=== PATIENT | female | born 1955 | race Caucasian/White ===

== ENCOUNTER 2018-06-04 13:59 | Outpatient (REF) | payer MEDICAID, SELFPAY | END 2018-06-04 14:19 | LOC: NCHCN 13:59 | PROVIDERS: PCP Obstetrics & Gynecology; Visit Provider Nurse Practitioner Family | DX: R35.0 Frequency of micturition (principal) | CPT/HCPCS: 87086; 87480; 87510; 87660 ==

== ENCOUNTER 2019-03-31 15:11 | Outpatient (REF) | payer MEDICAID, SELFPAY ==
[2019-03-31 20:25] LABS: Alkaline Phosphatase 71 U/L (46-116); C-Reactive Protein 0.08 mg/dL (0.0-0.3); TSH 2.29 uIU/mL (0.36-3.74)
== END 2019-03-31 15:31 ==
LOC: NCHCN 15:11
PROVIDERS: PCP Obstetrics & Gynecology; Visit Provider Internal Medicine
DX: L21.9 Seborrheic dermatitis, unspecified (principal)
CPT/HCPCS: 84075; 84443; 86140

== ENCOUNTER 2020-06-19 18:42 | Outpatient (REF) | payer MEDICAID, SELFPAY | END 2020-06-19 19:02 | LOC: NCHCN 18:42 | PROVIDERS: PCP Obstetrics & Gynecology; Visit Provider Internal Medicine | DX: N30.00 Acute cystitis without hematuria (principal) | CPT/HCPCS: 87077; 87086; 87186 ==

== ENCOUNTER 2020-06-22 12:53 | Outpatient (REF) | payer MEDICAID, SELFPAY ==
[2020-06-23 18:21] LABS: COVID-19 RT-PCR UVMMC Result Negative (Negative)
== END 2020-06-22 13:13 ==
LOC: NCHCN 12:53
PROVIDERS: PCP Obstetrics & Gynecology; Visit Provider Internal Medicine
DX: Z20.822 Contact with and (suspected) exposure to COVID-19 (principal)
CPT/HCPCS: U0003

== ENCOUNTER 2021-04-16 15:52 | Outpatient (REF) | payer MEDICAID, SELFPAY ==
[2021-04-18 15:08] LABS: COVID-19 RT-PCR UVMMC Result Negative (Negative)
== END 2021-04-16 15:53 | disposition home or self-care (01) ==
LOC: NCHCN 15:52
PROVIDERS: PCP Obstetrics & Gynecology; Visit Provider Nurse Practitioner Family
DX: Z20.822 Contact with and (suspected) exposure to COVID-19 (principal); R05.8 Other specified cough
CPT/HCPCS: U0003

== ENCOUNTER 2021-10-30 16:05 | Outpatient (REF) | payer MEDICARE, MEDICAID, SELFPAY | END 2021-10-30 16:06 | disposition home or self-care (01) | LOC: NCHCN 16:05 | PROVIDERS: PCP Obstetrics & Gynecology; Visit Provider Physician Assistant | DX: R35.0 Frequency of micturition (principal) | CPT/HCPCS: 87077; 87086; 87186 ==

== ENCOUNTER 2021-12-24 16:13 | Outpatient (REF) | payer MEDICARE, MEDICAID, SELFPAY ==
[2021-12-24 19:22] LABS: HCT 36.6 % (36.0-46.0); HGB 12.3 g/dL (11.2-15.7); MCH 31.8 pg (27.0-33.0); MCHC 33.6 % (32.0-36.0); MCV 95 fL (80-95); MPV 10.4 fL (8.0-11.0); Platelet Count 381 10^3/uL (130-400); RBC 3.87 10^6/uL (3.93-5.22); RDW 12.7 % (11.7-14.6); WBC 8.48 10^3/uL (4.4-10.8)
[2021-12-24 19:51] LABS: Calculated LDL 161 mg/dL (<100); Cholesterol 252 mg/dL (<200); HDL Cholesterol 57 mg/dL (40-60); TSH 1.97 uIU/mL (0.36-3.74); Triglyceride 174 mg/dL (<150)
== END 2021-12-24 16:14 | disposition home or self-care (01) ==
LOC: NCHCN 16:13
PROVIDERS: Internal Medicine; PCP Obstetrics & Gynecology; Visit Provider Physician Assistant
DX: J45.20 Mild intermittent asthma, uncomplicated (principal); D48.1 Neoplasm of uncertain behavior of connective and other soft tissue; L30.9 Dermatitis, unspecified; R22.9 Localized swelling, mass and lump, unspecified
CPT/HCPCS: 80061; 85027; 84443

== ENCOUNTER 2022-09-30 17:18 | Outpatient (REF) | payer MEDICARE, MEDICAID, SELFPAY ==
[2022-09-30 19:14] LABS: Anion Gap 11.4 mmol/L (3-11); BUN 16 mg/dL (7-18); CO2 23.6 mmol/L (21.0-32.0); CREATININE 0.8 mg/dL (0.55-1.02); Calcium 9.1 mg/dL (8.5-10.1); Calculated LDL 156 mg/dL (<100); Chloride 105 mmol/L (98-107); Cholesterol 235 mg/dL (<200); Estimated GFR 81.21 (mL/min/1.73m2); Glucose 100 mg/dL (74-106); HDL Cholesterol 57 mg/dL (40-60); Potassium 4.4 mmol/L (3.5-5.1); Sodium 140 mmol/L (136-145); Triglyceride 114 mg/dL (<150)
== END 2022-09-30 17:19 | disposition home or self-care (01) ==
LOC: NCHCN 17:18
PROVIDERS: PCP Obstetrics & Gynecology; Visit Provider Internal Medicine
DX: Z79.1 Long term (current) use of non-steroidal anti-inflammatories (NSAID) (principal); J45.20 Mild intermittent asthma, uncomplicated; R79.89 Other specified abnormal findings of blood chemistry
CPT/HCPCS: 80048; 80061

== ENCOUNTER 2022-10-23 15:09 | Outpatient (REF) | payer MEDICARE, MEDICAID, SELFPAY ==
--- OUTSIDE RECORDS SUMMARY | 2022-10-23 15:12 | XMS_ITS | Continuity of Care Document ---
Author Name Unknown Organization [facility] Address [address] [place] [address] Care Team Providers Care Emergency Department Name Role Phone Xu Leal Primary Care Physician Encounter [facility] Date(s): 06/12/22 - 06/12/[address] [address] Discharge Disposition: Home or Self Care Attending Physician: Zulay Snyder Admitting Physician: Zulay Snyder Referring Physician: Zulay Snyder Allergies, Adverse Reactions, Alerts Substance Reaction Severity Status sulfa drugs Unknown Active Social History Social History Type Response Sex Female Patient Care team information Personnel Name: Xu Leal MD Address: Address: [address] [address]
--- OUTSIDE RECORDS SUMMARY | 2022-10-23 15:12 | XMS_ITS | Continuity of Care Document ---
Author Name Unknown Organization [facility] Address [address] [place] [address] Care Team Providers Care Shirring Machine Operator Name Role Phone Xu Leal Primary Care Physician [facility] Date(s): 04/04/22 - 04/04/[address] [address] Encounter Diagnosis Encounter for screening mammogram for malignant neoplasm of breast(Final) - Discharge Disposition: Home or Self Care Attending Physician: Xu Leal MD Admitting Physician: Xu Leal MD Referring Physician: Xu Leal MD Allergies, Adverse Reactions, Alerts Substance Reaction Severity Status sulfa drugs Unknown Active Social History Social History Type Response Sex Female Patient Care team information Care Team Personnel Name: Xu Leal MD Position: No Access Member Role: Primary Care Physician Address: Address: [address] [address]- Care Team Related Persons Name: MAXWELL L[address] Address: Home [address] [place], [place] [id number]
[2022-10-23 20:33] LABS: Bacteria Rare HPF (Negative); C & S Indicated? C&S Done As Ordered; Casts Negative LPF (Negative); Crystals Negative HPF (Negative); Epithelial Cells Rare HPF (Negative); Mucus Negative (Negative); RBC 0-2 HPF (0-2); WBC 0-2 HPF (0-5)
== END 2022-10-23 15:10 | disposition home or self-care (01) ==
LOC: NCHCN 15:09
PROVIDERS: PCP Obstetrics & Gynecology; Visit Provider Internal Medicine
DX: R31.9 Hematuria, unspecified (principal); R35.0 Frequency of micturition
CPT/HCPCS: 81015; 87086

== ENCOUNTER 2024-01-14 12:43 | Outpatient (REF) | payer MEDICARE, MEDICAID, SELFPAY ==
[2024-01-14 20:39] LABS: Anion Gap 7.4 mmol/L (3-11); BUN 15 mg/dL (7-18); CO2 25.6 mmol/L (21.0-32.0); CREATININE 0.8 mg/dL (0.55-1.02); Calcium 9.3 mg/dL (8.5-10.1); Chloride 104 mmol/L (98-107); Estimated GFR 80.71 (mL/min/1.73m2); Glucose 96 mg/dL (74-106); Potassium 4.1 mmol/L (3.5-5.1); Sodium 137 mmol/L (136-145)
== END 2024-01-14 12:44 | disposition home or self-care (01) ==
LOC: NCHCN 12:43
PROVIDERS: PCP Obstetrics & Gynecology; Visit Provider Internal Medicine
DX: Z76.0 Encounter for issue of repeat prescription (principal)
CPT/HCPCS: 80048

== ENCOUNTER 2024-08-31 00:51 | Outpatient (CLI) | payer MEDICARE, MEDICAID, SELFPAY ==
--- NOTE | 2024-08-31 | DI.MRI_ITS ---
Exam(s) MR LOWER JOINT RT WO EXAM: MR LOWER JOINT RT WO CLINICAL HISTORY: UNILATERAL PRIMARY OSTEOARTHRITIS R KNEE, M17.11. TECHNIQUE: Multiplanar multisequence MRI was performed. COMPARISON: No exams were available for comparison FINDINGS: The examination is limited due to patient motion artifact. BONES: There is no fracture or contusion pattern. JOINTS: There is osteoarthritis in the medial femoral tibial joint characterized by near complete los s of the articular cartilage, subchondral edema and osteophytes. There are subchondral cysts seen in both the medial femoral condyle and the medial tibial plateau. The lateral femoral tibial joint is well maintained. The patellofemoral joint is also well maintained. There is a small amount of fluid in the joint space. This is within normal limits. TENDONS: Extensor mechanism: Unremarkable. Medial retinaculum: Unremarkable. Lateral retinaculum: Unremarkable. Popliteus: Unremarkable. MUSCLES: Unremarkable. MENISCI: The body and posterior horn of the medial meniscus shows marked decrease in size and irregul ar configuration. The lateral meniscus is unremarkable. SOFT TISSUES: There is some fluid seen medial to the proximal tibia suggesting pes anserinus bursitis . LIGAMENTS: Anterior Cruciate: Unremarkable. Posterior Cruciate: Unremarkable. Medial Collateral:Unremarkable. Lateral Collateral: Unremarkable. OTHER: IMPRESSION: 1. Marked osteoarthritis of the medial femoral tibial joint. 2. Maceration of the body and posterior horn of the medial meniscus. 3. Findings suggestive of a bursitis of the pes anserinus. 4. No evidence of a ligament tear. DATA REPOSITORY:
== END 2024-08-31 01:11 ==
LOC: DI 00:52
PROVIDERS: PCP Obstetrics & Gynecology; Visit Provider Internal Medicine
DX: M17.11 Unilateral primary osteoarthritis, right knee (principal)
CPT/HCPCS: 73721

== ENCOUNTER 2024-09-09 13:36 | Outpatient (CLI) | payer MEDICARE, MEDICAID, SELFPAY ==
--- NOTE | 2024-09-09 13:12 | DI.RAD_ITS ---
Exam(s) XR KNEE RT 4V AP,LAT,DEEPAK,PAT EXAM: XR KNEE RT 4V AP,LAT,DEEPAK,PAT CLINICAL HISTORY: right knee pain. TECHNIQUE: 2D digital imaging was performed. Three views. COMPARISON: MR MR LOWER JOINT RT WO from 08/31/2024 FINDINGS: BONES: No acute fracture is present. No bony destructive lesion is seen. JOINTS: There is severe degenerative changes of the medial femoral tibial joint, with a [id number] appearance. Periarticular spurring, sclerosis as well as subchondral cyst formation on both sides of the joint. There is varus angulation at the knee. The lateral femoral tibial joint shows some comp ensatory widening. The patellofemoral joint space is maintained. No joint effusion is seen. SOFT TISSUE: Normal. IMPRESSION: End-stage degenerative changes of the medial femoral tibial joint. DATA REPOSITORY: RADIATION DOSE DELIVERED:
--- NOTE | 2024-09-09 13:12 | DI.RAD_ITS ---
Exam(s) XR KNEE LT 4V AP,LAT,DEEPAK,PAT EXAM: XR KNEE LT 4V AP,LAT,DEEPAK,PAT CLINICAL HISTORY: left knee pain. TECHNIQUE: 2D digital imaging was performed. Three views. COMPARISON: CR XR KNEE RT 4V AP,LAT,DEEPAK,PAT from 09/09/2024 FINDINGS: BONES: No acute fracture is present. No bony destructive lesion is seen. JOINTS: There is severe narrowing of the medial femoral tibial joint, with a ihsa-jv-esoj appearance. There is prominent periarticular spurring as well as large subchondral cysts on both sides of the j oint. There is also varus angulation at the knee. There is a bipartite patella at the lateral aspec t. Patellofemoral joint is maintained with the exception of the far lateral portion at the bipartite component. No joint effusion is seen. SOFT TISSUE: Normal. IMPRESSION: End-stage degenerative changes medial femoral tibial joint. DATA REPOSITORY: RADIATION DOSE DELIVERED:
== END 2024-09-09 13:37 | disposition home or self-care (01) ==
LOC: DIORS 13:40
PROVIDERS: PCP Internal Medicine; Referring Provider Internal Medicine; Visit Provider Physician Assistant
DX: M17.11 Unilateral primary osteoarthritis, right knee; M17.12 Unilateral primary osteoarthritis, left knee
CPT/HCPCS: 99204; 73564

== ENCOUNTER 2024-12-01 18:52 | Outpatient (REF) | payer MEDICARE, SELFPAY ==
[2024-12-01 20:24] LABS: Abs Immature Grans 0.02 10^3/uL (0.0-0.06); HCT 36.6 % (36.0-46.0); HGB 12.1 g/dL (11.2-15.7); Immature Grans % 0.2 %; MCH 31.5 pg (27.0-33.0); MCHC 33.1 % (32.0-36.0); MCV 95 fL (80-95); MPV 9.6 fL (8.0-11.0); Platelet Count 429 10^3/uL (130-400); RBC 3.84 10^6/uL (3.93-5.22); RDW 12.5 % (11.7-14.6); RDW-SD 43.5 fL; WBC 8.86 10^3/uL (4.4-10.8)
[2024-12-01 20:46] LABS: Anion Gap 9.6 mmol/L (3-11); BUN 18 mg/dL (7-18); CO2 25.4 mmol/L (21.0-32.0); Calcium 9.5 mg/dL (8.5-10.1); Calculated LDL 149 mg/dL (<100); Chloride 102 mmol/L (98-107); Cholesterol 229 mg/dL (<200); Estimated GFR 94.15 (mL/min/1.73m2); Glucose 96 mg/dL (74-106); HDL Cholesterol 62 mg/dL (>or=50); Potassium 4.1 mmol/L (3.5-5.1); Sodium 137 mmol/L (136-145); Triglyceride 93 mg/dL (<150)
[2024-12-02 19:10] LABS: HIV-1/2 Ag & Ab Screen Negative (Negative)
[2024-12-02 19:23] LABS: Hepatitis C Ab w Rflx HCV PCR Negative (Negative)
== END 2024-12-01 18:53 | disposition home or self-care (01) ==
LOC: NCHCN 18:52
PROVIDERS: PCP Internal Medicine; Visit Provider Internal Medicine
DX: Z79.1 Long term (current) use of non-steroidal anti-inflammatories (NSAID) (principal); Z11.4 Encounter for screening for human immunodeficiency virus [HIV]; Z13.220 Encounter for screening for lipoid disorders
CPT/HCPCS: 80048; 80061; 86803; 87389; 85025

== ENCOUNTER 2024-12-10 00:50 | Outpatient (CLI) | payer MEDICARE, SELFPAY ==
[2024-12-10 11:21] LABS: HCT 36.8 % (36.0-46.0); HGB 12.1 g/dL (11.2-15.7); MCH 31.2 pg (27.0-33.0); MCHC 32.9 % (32.0-36.0); MCV 95 fL (80-95); MPV 9.1 fL (8.0-11.0); Platelet Count 402 10^3/uL (130-400); RBC 3.88 10^6/uL (3.93-5.22); RDW 12.5 % (11.7-14.6); RDW-SD 43.6 fL; WBC 8.03 10^3/uL (4.4-10.8)
[2024-12-10 11:23] LABS: Anion Gap 11.9 mmol/L (3-11); BUN 17 mg/dL (7-18); CO2 25.1 mmol/L (21.0-32.0); Calcium 9.3 mg/dL (8.5-10.1); Chloride 98 mmol/L (98-107); Estimated GFR 97.71 (mL/min/1.73m2); Glucose 116 mg/dL (74-106); Potassium 4.4 mmol/L (3.5-5.1); Sodium 135 mmol/L (136-145)
== END 2024-12-10 00:51 | disposition home or self-care (01) ==
LOC: LBO 00:50
PROVIDERS: PCP Internal Medicine; Visit Provider Student in an Organized Health Care Education/Training Program
DX: Z01.818 Encounter for other preprocedural examination (principal); M17.11 Unilateral primary osteoarthritis, right knee
CPT/HCPCS: 36415; 80048; 85027

== ENCOUNTER 2024-12-10 10:16 | Outpatient (CLI) | payer MEDICARE, MEDICAID, SELFPAY ==
--- NOTE | 2024-12-10 09:45 | DI.RAD_ITS ---
Exam(s) XR STANDING ALIGNMENT EXAM: XR STANDING ALIGNMENT CLINICAL HISTORY: PRE OP TKA. TECHNIQUE: 2D digital imaging was performed. COMPARISON: CR XR KNEE LT 4V AP,LAT,DEEPAK,PAT from 09/09/2024 FINDINGS: 3 views There is xzdj-kc-[id number] narrowing of the medial compartments of both knees with relative preservation of height of the lateral compartments bilaterally. Mild symmetrical narrowing of the hip joint spaces. No osteophytes in the hips. Ankles unremarkable. Bone density normal. No osseous lesions. Some disc space narrowing in the lumbar spine is noted. There is an IUD in place IMPRESSION: Advanced relatively symmetrical yczr-wd-kvzx narrowing of the medial compartments of both knees. There is an IUD in place in this 69-year-old patient DATA REPOSITORY: RADIATION DOSE DELIVERED:
== END 2024-12-10 10:17 | disposition home or self-care (01) ==
LOC: DIORS 10:16
PROVIDERS: PCP Internal Medicine; Visit Provider Physician Assistant
DX: Z01.818 Encounter for other preprocedural examination (principal); M17.0 Bilateral primary osteoarthritis of knee
CPT/HCPCS: 99024; 77073

== ENCOUNTER 2024-12-21 09:51 | Day surgery (SDC) | payer MEDICARE, MEDICAID, SELFPAY ==
[2024-12-21] VITALS (14 sets, daily range): BP systolic 109–163; BP diastolic 56–109; PULSE 55–76; RESP 10–21; TEMP 36.3–36.5; O2SAT 97–100; BMI 25.3
--- NOTE | 2024-12-21 07:25 | W.PM.DSUDISC ---
Date of service: 12/21/24 Discharge Plan Disposition Patient Disposition: Home Condition: Good Discharge Details Reason For Visit: R TKR Attending Provider: Benji Sánchez Primary Care Provider: Xu Barajas Home Meds and New Rx's Prescriptions: New acetaminophen 500 mg tablet 1,000 mg PO TID Qty: 90 3RF aspirin 81 mg tablet,delayed release (DR/EC) 81 mg PO BID Qty: 60 0RF dexamethasone 4 mg tablet 4 mg PO DAILY Qty: 2 0RF docusate sodium 100 mg capsule 100 mg PO BID PRNQty: 28 0RF meloxicam 15 mg tablet 15 mg PO DAILY Qty: 30 2RF pantoprazole 40 mg tablet,delayed release (DR/EC) 40 mg PO DAILY Qty: 14 0RF gabapentin 300 mg capsule 300 mg PO QHS Qty: 14 0RF oxycodone 5 mg tablet 5 mg PO Q4H PRNQty: 18 0RF Continued albuterol sulfate [Ventolin HFA] 90 mcg/actuation HFA aerosol inhaler 2 puff inhalation Q6H PRN budesonide-formoterol [Symbicort] 80-4.5 mcg/actuation HFA aerosol inhaler 2 puff inhalation BID famotidine 40 mg tablet 40 mg PO DAILY fluticasone propionate 50 mcg/actuation spray,suspension 1 spray intranasal DAILY Rx Instructions: administer into each nostril loratadine 10 mg tablet 10 mg PO DAILY triamcinolone acetonide 0.1 % cream 1 applic topical DAILY albuterol sulfate 90 mcg/actuation HFA aerosol inhaler 2 puff inhalation Q6H PRN Discontinued meloxicam 7.5 mg tablet 7.5 mg PO DAILY Discharge Instructions Additional Instructions: Total Knee Discharge Instructions Activity: The most important activity is to walk and to work on gentle motion (both flexion and extension). You should try to take short walks a few times a day. It is important that when resting you work on keeping the knee straight. Avoid putting a pillow behind the knee as this will encourage flexion. Work on range of motion exercises as provided by Physical Therapy. - Start outpatient physical therapy within 2 weeks. - You should wear the YOLI hose on both legs for 2 weeks. You may remove these at night. You may also use any compression sock in place of the YOLI hose. - Utilize [employer] to review exercises, see videos on exercises and obtain basic information pertaining to your surgery and your recovery. Dressing: Remove the Jarred wrap by 2 days after your surgery and put on the YOLI stocking given to you from the hospital. Keep the surgical dressing (underneath the JARRED wrap) in place for at least one week. After the first week it may be removed and replaced with light gauze and tape or nothing. The wound and dressing may get wet after 3 days but avoid soaking the dressing or otherwise it will need to be changed. Many people prefer covering the dressing with cling wrap (saran wrap) to minimize it from getting soaked. If it gets wet, just pat dry. If it starts to peel off then it will need to be changed. Medications: - You should take Tylenol and anti-inflammatory meloxicam as your primary pain control medications. - You have been prescribed a stronger pain medication Oxycodone for breakthrough pain, take as needed as prescribed. - You have also been prescribed a stomach acid reduction agent Pantoprozole to help reduce stomach acid and reflux. - You have been prescribed Gabapentin to take at night for restlessness and nerve pain. - You will be taking Aspirin 81mg twice a day for DVT prevention unless instructed otherwise. - You have also been prescribed Decadron to take to control post-operative nausea and pain. You will start this tomorrow. - If you have constipation you should take Colace or Miralax (both ivhe-sbw-fzjrqes). It takes most people 3-4 days to have a bowel movement. Follow-up: 2 weeks If you have any acute concerns or questions, please do not hesitate to contact the office at [phone]. You may contact Dr. Sánchez with any questions after hours through the hospital at [phone] or on his cell phone at [phone]. Referrals: Benji Sánchez MD [ [facility] STAFF PHYSICIAN, Orthopaedic Surgical] Equipment/Supplies: Walker Activity:: Activity as Tolerated Shower/Bathe:: 72 hours Diet:: As Tolerated Discharge Orders Discharge Orders: Discharge Order (Routine); Ordered 12/21/24 Ordered By: Davonte Leiva DS: Diagnosis Discharge Diagnosis (1) Bilateral primary osteoarthritis of knee: Status: Acute
[2024-12-21] MEDS: Lactated Ringers 1,000 ML 80 ML IV (10:47)
[2024-12-21] MEDS: Celecoxib 200 MG CAP 400 MG PO (10:49)
[2024-12-21] MEDS: Acetaminophen 500 MG TAB 1000 MG PO (10:50)
[2024-12-21] MEDS: Gabapentin 300 MG CAP PO (10:50)
--- NOTE | 2024-12-21 11:07 | W.ANESPRE ---
General Info Date of Service Date Performed: 12/21/24 Height: 5 ft 2.5 in Weight: 63.9 kg Body Mass Index (BMI): 25.3 Surgical Procedure: Operation Date: 12/21/24 13:25 Proposed Procedure Side Surgeon p Knee Total Arthroplasty Possible Revision- TIBIA, w/Orth[facility] Right Benji Sánchez MD Meds Allergies and Home Medications Allergies Allergy/AdvReac Type Severity Reaction Status Date / Time sulfadiazine Allergy Intermediate Hives Verified 12/21/24 10:17 sulfamethoxazole (From Allergy Unknown Unknown Verified 12/21/24 10:17 Bactrim) trimethoprim (From Bactrim) Allergy Unknown Unknown Verified 12/21/24 10:17 Home Medication ?Medication ?Instructions ?Recorded albuterol sulfate 90 mcg/actuation 2 puff inhalation Q6H PRN 08/19/24 aerosol inhaler famotidine 40 mg tablet 40 mg PO DAILY 08/19/24 fluticasone propionate 50 1 spray intranasal DAILY 08/19/24 mcg/actuation nasal spray,suspension loratadine 10 mg tablet 10 mg PO DAILY 08/19/24 triamcinolone acetonide 0.1 % 1 applic topical DAILY 08/19/24 topical cream albuterol sulfate 90 mcg/actuation 2 puff inhalation Q6H PRN 12/10/24 aerosol inhaler (Ventolin HFA) budesonide-formoterol HFA 80 2 puff inhalation BID 12/10/24 mcg-4.5 mcg/actuation aerosol inhaler (Symbicort) acetaminophen 500 mg tablet 1,000 mg (2 x 500 mg) PO TID #90 12/21/24 tabs aspirin 81 mg tablet,delayed 81 mg PO BID #60 tabs 12/21/24 release dexamethasone 4 mg tablet 4 mg PO DAILY #2 tabs 12/21/24 docusate sodium 100 mg capsule 100 mg PO BID PRN #28 caps 12/21/24 gabapentin 300 mg capsule 300 mg PO QHS #14 caps 12/21/24 meloxicam 15 mg tablet 15 mg PO DAILY #30 tabs 12/21/24 oxycodone 5 mg tablet 5 mg PO Q4H PRN #18 tabs 12/21/24 pantoprazole 40 mg tablet,delayed 40 mg PO DAILY #14 tabs 12/21/24 release Current Visit Medications: Current Medications Generic Name Dose Route Start Last Admin Trade Name Cuca PRN Reason Stop Dose Admin Acetaminophen 1,000 mg 12/21/24 06:00 12/21/24 10:50 Acetaminophen 500 Mg Tab PO 12/21/24 23:59 1,000 mg PREOP NILAY Administration Acetaminophen 1,000 mg 12/21/24 07:23 Acetaminophen 500 Mg Tab PO 01/20/25 07:22 TID PRN PRN Analgesia Celecoxib 400 mg 12/21/24 06:00 12/21/24 10:49 Celecoxib 200 Mg Cap PO 12/21/24 23:59 400 mg PREOP NILAY Administration Docusate Sodium 100 mg 12/21/24 07:23 Docusate Sodium 100 Mg Cap PO 01/20/25 07:22 BID PRN PRN Constipation Gabapentin 300 mg 12/21/24 06:00 12/21/24 10:50 Gabapentin 300 Mg Cap PO 12/21/24 23:59 300 mg PREOP NILYA Administration Ringer's Solution 1,000 mls @ 80 mls/hr 12/21/24 06:00 12/21/24 10:47 IV 12/21/24 23:59 80 mls/hr INFUSION NILAY Administration Cefazolin Sodium/Dextrose 2 gm in 50 mls @ 100 mls/hr 12/21/24 06:00 Ancef Duplex IVPB 12/21/24 23:59 PREOP NILAY Tranexamic Acid/Sodium Chloride 1,000 mg in 100 mls @ 600 mls/hr 12/21/24 06:00 IVPB 12/21/24 23:59 PREOP NILAY IV Miscellaneous Supplies 1 each 12/21/24 06:00 Iv Access IV 12/21/24 23:59 DIRECTED NILAY Ondansetron HCl 4 mg 12/21/24 07:23 Ondansetron 4 Mg/2 Ml Vial IVP 01/20/25 07:22 Q6H PRN PRN Nausea Oxycodone HCl 0 mg 12/21/24 07:23 Oxycodone 5 Mg Tab PO 01/20/25 07:22 Q3H PRN PRN Pain Polyethylene Glycol 17 gm 12/21/24 07:23 Polyethylene Glycol 3350 17 Gm Packet PO 01/20/25 07:22 BID PRN PRN Constipation Sodium Chloride 0 ml 12/21/24 06:00 Normal Saline Flush 10 Ml Syr IV 12/21/24 23:59 PRN PRN Sodium Chloride 0 ml 12/21/24 06:00 Normal Saline 10 Ml Vial IJ 12/21/24 23:59 DIRECTED PRN Sterile Water 0 ml 12/21/24 06:00 Water,Injection,Sterile 10 Ml Vial IJ 12/21/24 23:59 DIRECTED PRN PFSH Active Problems Active Problems: Problem Status Onset Code History of total right knee replacement Acute 12/21/24 Z96.651 Eczema Acute L30.9 Bilateral hearing loss Acute H91.93 Rosacea Acute L71.9 Mild intermittent asthma Acute J45.20 GERD (gastroesophageal reflux disease) Chronic K21.9 Bilateral primary osteoarthritis of knee Acute M17.0 Medical History Medical History Urticaria Surgical History Surgical History H/O removal of cyst left leg Hx of appendectomy S/P tonsillectomy Tobacco Smoking/Tobacco Use Status: Never Substance Use Substance use: Never Substance use type: does not use Vital Signs and Lab Results Vital Signs Most Recent Vital Signs in EMR: Most Recent Vital Signs Temp Pulse Resp BP Pulse Ox 36.4 C L 76 18 145/85 H 100 12/21/24 10:11 12/21/24 10:11 12/21/24 10:11 12/21/24 10:11 12/21/24 10:11 Lab Results Complete Blood Count: WBC, (4.4-10.8) 8.03 10^3/uL 12/10/24, 11:07 RBC, (3.93-5.22) 3.88 10^6/uL L 12/10/24, 11:07 Hgb, (11.2-15.7) 12.1 g/dL 12/10/24, 11:07 Hct, (36.0-46.0) 36.8 % 12/10/24, 11:07 Plt Count, (130-400) 402 10^3/uL H 12/10/24, 11:07 Complete Metabolic Panel: Sodium, (136-145) 135 mmol/L L 12/10/24, 11:07 Potassium, (3.5-5.1) 4.4 mmol/L 12/10/24, 11:07 Chloride, (98-107) 98 mmol/L 12/10/24, 11:07 Carbon Dioxide, (21.0-32.0) 25.1 mmol/L 12/10/24, 11:07 BUN, (7-18) 17 mg/dL 12/10/24, 11:07 Creatinine, (0.55-1.02) 0.6 mg/dL 12/10/24, 11:07 Est GFR (CKD-EPI 2020), (mL/min/1.73m2) 97.71 12/10/24, 11:07 Calcium, (8.5-10.1) 9.3 mg/dL 12/10/24, 11:07 Glucose, (74-106) 116 mg/dL H 12/10/24, 11:07 Infectious Disease: HIV 1&2 Ag/Ab, 4th Gen, (Negative) Negative 12/01/24, 15:30 Hepatitis C Antibody, (Negative) Negative 12/01/24, 15:30 Anesthesia Assessment and Plan Anesthesia History Personal History: No History of Anesthesia Complications Family History: No Family History of Anesthesia Complications Exercise Tolerance Exercise Tolerance: Metabolic Equivalents>4 Pertinent Negatives Pertinent Negatives: No Symptoms of GERD, No Major Cardiovascular Symptoms or Complaints and No History of CVA/TIA Cardiac & Pulmonary Exam Cardiac Exam: Normal S1/S2 Heart Sounds Pulmonary Exam: Clear Bilateral Breath Sounds Cardiac and Pulmonary Comment:: Asthma well controlled. Implantable Cardiac Device Does patient have a Pacemaker or an ICD?: No Airway Exam Known Difficult Airway: No Mallampati Class: 2 Mouth Opening: Normal (> 3cm) Thyromental Distance: Greater than 3 cm Neck Range of Motion: Full ROM Neck Circumference: Normal Teeth Condition: Normal Dentition ASA Classification ASA Score: ASA 2 Emergency Case?: No NPO Status NPO Status: NPO Clears >2 hours, Solids >8 hours Anesthesia Plan Resuscitation Status: Full Code Anesthesia Technique: Spinal Anesthesia Airway Planned: Natural Airway Pain Management: Surgeon and patient request nerve block Monitors Used: Standard Monitors
[2024-12-21] MEDS: ceFAZolin 2 GM/50 ML BAG IVPB (12:16)
[2024-12-21] MEDS: TRANEXAMIC ACID/SOD. CHL. 1,000 MG/100 ML BAG 600 MG IVPB (12:26)
--- NOTE | 2024-12-21 12:58 | W.ANESNERVE ---
Nerve Block Single Injection Procedure Date and Time Date Performed: 12/21/24 Procedure Start: 11:50 Location Where Procedure Performed Procedure Location: Day Surgery Unit Reason Performed: Postoperative Analgesia Requesting Provider: Benji Sánchez Timeout Performed Timeout Performed: Yes Monitoring Used ECG, Blood Pressure, SpO2 and ETCO2 Sterility Sterility: Hand Hygiene, Surgical Cap, Surgical Mask, Sterile Gloves and Chlorhexidine Sedation Given During Procedure Sedation Given (Indicate Dose Given): Precedex IV Dose:: 12 mcg Patient Mental Status Patient Mental Status: Sedate with meaningful communication Nerve Block 1st Nerve Block: Laterality: Right Block Type: Adductor Canal Ultrasound Image Saved?: Yes Needle / Catheter Used: 100mm SonoPlex II Local Anesthetic Bolus (Indicate Dose Given): Injected in 3-5ml increments after negative blood aspiration, Bupivacaine 0.25% Dose:: 10 ml and Exparel Dose:: 10 ml Additives (Indicate Dose Given): None Ultrasound: Sterile probe cover and gel used Nerve Stimulator: Supplement to Ultrasound use and No twitch or parasthesia noted < 0.5 mA Paresthesia: None Procedure Tolerated: No Complications and Patient tolerated well Procedure Outcome: Successful Performed By: Osito Potts 2nd Nerve Block: Laterality: Right Block Type: Other (Anterior femoral cutaneous nerves) Ultrasound Image Saved?: Yes Needle / Catheter Used: 100mm SonoPlex II Local Anesthetic Bolus (Indicate Dose Given): Injected in 3-5ml increments after negative blood aspiration and Bupivacaine 0.25% Dose:: 5 ml Additives (Indicate Dose Given): None Ultrasound: Sterile probe cover and gel used Nerve Stimulator: Supplement to Ultrasound use and No twitch or parasthesia noted < 0.5 mA Paresthesia: None Procedure Tolerated: No Complications and Patient tolerated well Procedure Outcome: Successful Performed By: Osito Potts
--- NOTE | 2024-12-21 13:38 | ROE_ITS ---
Operative Note Operative Note PRE-OP DIAGNOSIS: Left Knee Osteoarthritis POST-OP DIAGNOSIS: same PROCEDURE: Left Total Knee Replacement with Intraoperative Navigation SURGEON: Benji Sánchez [employer] B[employer]EFITS CLERK: Ritika Portillo ANESTHESIA TYPE: Spinal Refer to Anesthesia Record ESTIMATED BLOOD LOSS: 50 PATHOLOGY: none sent TOURNIQUET TIME: 0 COMPLICATIONS: None Patient was transported to: PACU Patient's condition: stable Implants: 1. Depuy Attune Cementless Cruciate Retaining Femoral Component, Size 5 2. Depuy Attune Cementless Fixed Bearing Tibial Component, Size 4 3. Depuy Attune 5x6mm CR/FB Poly Indications: I have seen Citlali in clinic for symptoms of RIGHT knee arthritis, confirmed with radiographic findings. She has exhausted nonoperative methods and was having significant limitations in daily function and desired better function and less pain. I discussed the technical details of a knee replacement. I explained the risks of the procedure to include, but not limited to, bleeding, infection, pain, stiffness, fracture, damage to nerves and vessels, damage to muscles and tendons, loosening, need for repeat procedure, blood clot and cardiopulmonary demise. Despite these risks, Citlali elected to proceed. Findings: There was significant signs of arthritis throughout the knee. There was some notable cystic change seen on the x-ray. Fortunately, the cyst was contained with thick and dense rim of bone around it over the medial aspect of the tibia. Did not have much structural effect of the tibia. There is no significant cyst encountered on the femur. Procedure Description: Citlali was greeted in the preoperative holding area where the correct side was identified and marked. The consent was reviewed with the patient and signed. The history and physical was updated. All questions were answered. Preoper ative mediacations were administered: Acetaminophen 1000mg, Celebrex 400mg, and Gabapentin 300mg. An adductor canal block was then administered by the anesthesia team in the DSU. She was taken back to the operating room. A spinal anesthestic was then administered. The patient was placed into the supine position on the operating room table. Posts were placed for positioning during the procedure. All bony prominences were well padded. Prophylactic antibiotics in the form of Cefazolin were administered. 1g of Tranxemic Acid was given intravenously within 30 minutes of incision. The right leg was then prepped with Chloraprep and draped in a standard fashion with impervious stockinette. A second prep with Chloraprep was performed prior to application of Iodine impregnated skin protect ion. A timeout to confirm correct identity, side and site, procedure, allergies, anesthesia, and medical concerns was performed. With the knee in some flexion, a midline incision was made overlying the knee. Full thickness skin flaps were raised once the extensor mechanism was encountered. These were raised medially and laterally. Any bleeding was controlled with electrocautery. Once the extensor mechanism was fully exposed, a medial parapatellar arthrotomy was performed in a flexed position. All bleeding from the arthrotomy and the geniculate arteries was coagulated. A medial subperiosteal peel was performed with electrocautery to the midcoronal plane. The fat pad was removed while keeping the patellar tendon protected. The anterior distal femur synovium was removed for later visualization. The ACL and PCL were resected and the anterior horn of the lateral meniscus was transected. The knee was then flexed with the patella everted. Large osteophytes from the tibia were removed. Large osteophytes from the femur were removed. A single starting pin was then placed 1cm anterior to the PCL insertion and the notch in the direction of the femoral head. The OrthoAlign device was applied over the pin. It was oriented to be in line with the epicondylar axis and the trochlear groove. It was then pinned into place. The navigation computer was then turned on and calibrated. The distal femur cut was set at 0 degrees varus and 3.5 degrees flexion. The distal femur cutting guide then was positioned for a 9mm cut. The distal femur was cut with an oscillating saw while protecting the soft tissues. The tibia was then addressed. The OrthoAlign device was placed over the tibial tubercle and medial tibia and secured into position. Once again, OrthoAlign was calibrated and then set for a 2 degree varus cut and 5 degrees of posterior slope. With this locked into position, the cut thickness stylus was used to assess cut thickness. The medial side, most involved side, was set for a 4mm cut. This was then held in position and pinned into place with 2 additional pins and a cross pin for stability. The medial and lateral collateral ligaments were protected and the cut was performed. With this completed, it was assessed and noted to be of appropriate dimensions. The guide and OrthoAlign was removed. A spacer block was inserted and the knee was brought into extension to ensure enough space was present. There was some osteophytes remnant around the posterior medial aspect of the tibia which were removed. At this point there was a portion of the medial tibial cyst which was encountered. It really only occupied a very small amount of space superficially with a rim of bone around the periphery so that it was contained. It did track into the medial wall of the tibia by about 1 cm and only 3 to 4 mm in width. The cyst contents were removed. The rim of the cyst had very dense and structural bone. The Orthoalign gap balancing device was then placed in extension. This was used to ensure that the ligaments were properly balanced with up to 2 to 3 mm laxity laterally compared medially. The extension gap was measured as 20mm. The knee was then brought into 90 degrees of flexion and the ligament dental front office assistant was once again placed. Under the same amount of force the flexion gap was measured. The Attune specific jig was placed and the flexion gap was made to match the extension gap. The femur was then sized as a size 5. The 4-in-1 cutting guide was the placed. An oscar wing was used to confirm appropriate position of the anterior cut to avoid notching. This cutting guide was ensured to be flush on the cut surface and then pinned into place with headed pins. While protecting the soft tissues, quad tendon, and collateral ligaments, the anterior and posterior cuts were performed with a saw. The central two pins were removed and the posterior and anterior chamfers were cut next. The notch-cutting guide was placed. This was pinned to lateralize the femoral component as much as possible while keeping it flush on the cut surface. This was then pinned into position. A saw was used to make the notch cut. A rasp smoothed the cut surfaces. The medial and lateral menisci were removed. A trial femoral component was then inserted, impacted down to the cut surfaces, and the lug holes were drilled. A provisional trial tibial component was placed and the knee was brought through range of motion. There was noted to be excellent extension and flexion. There was no significant instability. The patella was tracking without thumbs. A size 6mm polyethylene component provided the best range of motion and stability with less than 2mm gapping with medial and lateral stress and full extension without significant hyperextension. The tibial cut surface was fully exposed. The tibia was then sized as a 4. The tibia had been previously marked during trialing to correspond to the center of the tibial component to help with rotation. The trial was aligned to this kimo, approximately rotated to the medial 1/3rd of the tibial tubercle. The trial was pinned into place. The tibia was prepared with a reamer and a keel punch and lug holes. The trial components were removed. The final components were opened on the back table. I then used some bone from the previous bone cuts to pack into the cyst over the medial edge of the tibia. The periosteal and capsular tissues, especially posteriorly, around the knee were then systematically injected with a periarticular cocktail consisting of 246mg of Ropivacaine, 0.5mg of Epinephrine, 0.08mg of Clonidine, and 30mg of Ketorolac, diluted to 100cc. Then, the knee components were placed. Starting with the tibial component, the tibia was subluxed anteriorly and the lug holes of the component were lined up. The tibia was then impacted with an impactor and mallet until the tibial component was in contact with the tibia. Then, the femoral component was inser wally. The lug holes were aligned and the component was impacted into position. The final polyethylene component was inserted. The knee was irrigated with Surgiphor Betadine solution. This was allowed to sit in the knee for 3 minutes and then it was thoroughly irrigated out with saline. The knee was then taken through range of motion. The patella was tracking with a no-thumbs technique. The capsule was then reapproximated with a No. 1 Vicryl at multiple locations. The capsule was finally closed with a No. 2 Stratafix, barbed suture. Deep tissues were then reapproximated with 0 Vicryl and 2-0 Vicryl. The skin was closed with a running 3-0 Monocryl in a subcuticular fashion. This was reinforced with skin glue. A Mepilex silver dressing was applied along with a [id number]-[id number] SHUKRI wrap. A CryoCuff was applied. Citlali was transferred to the hospital bed without difficulty an suffering no apparent complication. She has a good prognosis. Physical therapy will start today and without restrictions, weight-bearing as tolerated. Aspirin 81mg BID will be used for DVT prophylaxis. Date of Procedure: 12/21/24
--- NOTE | 2024-12-21 14:39 | W.ANESPOSTOP ---
Postoperative Evaluation Date, Time and Location Date Performed: 12/21/24 Time Performed: 14:39 Patient Location: Day Surgery Unit Vital Signs Most Recent Imported Vital Signs: Most Recent Vital Signs Temp Pulse Resp BP Pulse Ox 36.5 C 56 L 17 131/109 H 100 12/21/24 14:20 12/21/24 14:20 12/21/24 14:20 12/21/24 14:20 12/21/24 14:20 Pain Score Most Recent Pain Score: Most Recent Pain Score Pain Level 0 12/21/24 14:20 Assessment Mental Status: Awake (Alert & Oriented to Patient Baseline) Airway and Respiratory Function: Patent airway with normal (patient baseline) respiratory exam Cardiovascular Function: Hemodynamically Stable Hydration Status: Adequately Hydrated Nausea & Vomiting: No Nausea or Vomiting Pain: Pt. Denies Any Pain Peripheral Nerve Block: Regional nerve block not resolved at time of post operative discharge
[2024-12-21] MEDS: Tranexamic Acid 650 MG TAB 1300 MG PO (15:26)
--- NOTE | 2024-12-21 16:43 | PT.INIE ---
PT Notes Visit Reasons: R TKR Physical Therapy Day Surgery Initial Evaluation Date: 12/21/2024 Referring Doctor: BERNIE Molina/Dr. Sánchez PT Orders: PT CONSULT: Status post Ortho surgery Precautions: WBAT right LE Patient Profile/Admitting Diagnosis: Patient is 69-year-old female presenting status post elective right TKA by Dr. Sánchez on 12/21/2024. Postop uncomplicated PMHX: Eczema, bilateral hearing loss, rosacea, asthma, GERD, bilateral knee OA Social History/Home Situation: Patient resides with her in two-story home with 2 steps to enter with grab bar and flight of stairs to second-floor bedroom. Patient independent without assistive device for ambulation, independent ADLs Equipment Owned/DME: Standard walker, FWW, canes Subjective: Patient reports she will be staying on first floor sleeping on pullout sofa. Objective: General Observation: Female semireclined with Cryo/Cuff to right knee Mental Status: Alert and oriented x 4, cooperative, able to follow instructions, agreeable to participate Pain: Right knee 2/10 ROM: [] Right Lower Extremity: Hip and ankle WFL, knee 0 to 94 degrees; shortened hamstring length Left Lower Extremity: WFL Strength: [] Right Lower Extremity:Hip flexion: 2+/5; hip abduction: 3 -/5; hip extension: 3 -/5; knee extension: 3/5; knee flexion: 2+/5 ankle DF: 3/5 ; ankle PF: 3/5; fair quad set, slight quad lag with straight leg raise with noted shortened hamstring length contributing Left Lower Extremity: 5/5 Sensation: Intact to light touch with slight diminished sensation to lateral thigh Bed Mobility/Transfers: Supine to sit SBA Sit to stand SBA Stand to sit SBA from FWW Bed to chair SBA with FWW Gait: Ambulated 100 feet with FWW with standby assist with reciprocal pattern intermittent cues provided for quad activation at mid stance. Stairs: Simulated 2 steps with grab bar with contact-guard assist step to pattern cues for sequencing Balance: [] Static Sitting: normal Dynamic Sitting: Good Static Standing: Good Dynamic Standing: Fair Special Tests: [] Mobility Limitations Standardized Measure [] [facility] AM-PAC 6 clicks Basic Mobility Inpatient Short Form: [] Raw Score: 22 CMS Score: 20.91% Informed Consent/Education: Patient instructed in purpose of PT consult. Packet containing TKA exercise protocol has been given to patient. Education and training on initial set of exercises that can be done at home have been completed with patient. Assessment: Patient is a 69-year-old female who presents with clinical signs and symptoms consistent with current/admitting diagnoses that have resulted to mobility limitations, gait instability, generalized weakness, and impairment of motor control as demonstrated by the following impairment level findings: 1. Decreased strength to right knee major muscle groups 2. Impaired standing balance 3. Limitation of joint range of motion in right knee 4. Impaired functional activity tolerance 5. Pain right knee 6. Impaired hamstring length bilaterally right greater than left Impairments are contributing to the following functional limitations: 1. Inability to safely ambulate without assistive device 2. Increase completion time for mobility ADL performance 3. Increased fall risk 4. Difficulty performing stairs without assistance Patient is assessed as a low complexity based on the following: History: 69-year-old female with impairment level findings, functional limitations, and past medical history as indicated above Examination: Demonstrable impairment in strength, balance, and mobility level with underlying impairments and functional limitations as documented above Presentation: Stable Decision Making: Low Goals: N/A. PT evaluation and 1-2 treatment sessions only for functional mobility training using recommended AD and for HEP instruction. Plan of Care/Treatment Plan: N/A. PT evaluation and 1-2 treatment session only for functional mobility training using recommended AD and for HEP instruction. DISCHARGE RECOMMENDATIONS: Home with HEP and outpatient PT as scheduled TREATMENT CODE/TIME: [id number] Thank you for the opportunity to participate in the care of this patient. Laura Pérez, PT [facility]
== END 2024-12-21 16:10 | disposition home or self-care (01) ==
LOC: SUR 09:52
PROVIDERS: PCP Internal Medicine; Visit Provider Student in an Organized Health Care Education/Training Program
PROC: (CPT 27447; principal; 2024-12-21 13:15)
DX: M17.11 Unilateral primary osteoarthritis, right knee (principal); G89.18 Other acute postprocedural pain
CPT/HCPCS: 20985; 27447; 64447; 64450; 97161; C1776; J0665; J0666; J0690; J1100; J2371; J2401; J2405; J2704; J3475

== ENCOUNTER 2025-01-06 11:51 | Outpatient (CLI) | payer MEDICARE, MEDICAID, SELFPAY ==
--- NOTE | 2025-01-06 08:30 | DI.RAD_ITS ---
Exam(s) XR KNEE RT 1V XR STANDING ALIGNMENT EXAM: XR STANDING ALIGNMENT CLINICAL HISTORY: 1ST POST OP S/P R TKA. TECHNIQUE: 2D digital imaging was performed. Standing AP views were performed from the pelvis through the ankles. Lateral view of the right knee COMPARISON: CR XR STANDING ALIGNMENT from 12/10/2024 CR XR KNEE RT 1V from 01/06/2025 FINDINGS: BONES: No acute fracture is present. No bony destructive lesion is seen. Leg length discrepancy: No significant overall leg length discrepancy. JOINTS: Knees: Status post placement of a right total knee prosthesis. The alignment appears satisfactory. There are severe degenerative changes of the medial femoral tibial joint of the left knee. The ankle joints are unremarkable. The hip joints are unremarkable. SOFT TISSUE: Normal. IMPRESSION: Status post placement of right knee prosthesis. Severe degenerative changes of the medial femoral tibial joint space of the left knee.. No significant leg length discrepancy. DATA REPOSITORY: RADIATION DOSE DELIVERED:
== END 2025-01-06 11:52 | disposition home or self-care (01) ==
LOC: DIORS 11:52
PROVIDERS: PCP Internal Medicine; Visit Provider Physician Assistant
DX: Z47.1 Aftercare following joint replacement surgery (principal); Z96.651 Presence of right artificial knee joint; M25.561 Pain in right knee
CPT/HCPCS: 99024; 73560; 77073

== ENCOUNTER 2025-01-31 14:58 | Outpatient (CLI) | payer MEDICARE, MEDICAID, SELFPAY ==
--- NOTE | 2025-01-31 13:15 | DI.RAD_ITS ---
Exam(s) XR KNEE RT 2V AP,LAT EXAM: XR KNEE RT 2V AP,LAT INDICATION: right TKA. COMPARISON: CR XR KNEE RT 1V from 01/06/2025 CR XR STANDING ALIGNMENT from 01/06/2025 TECHNIQUE: 2D digital imaging was performed. Two views. FINDINGS: Stable alignment of total knee prosthesis. No abnormal surrounding lucencies. Small joint effusion. Mild anterior soft tissue swelling. DATA REPOSITORY: RADIATION DOSE DELIVERED:
== END 2025-01-31 14:59 | disposition home or self-care (01) ==
LOC: DIORS 14:58
PROVIDERS: PCP Internal Medicine; Referring Provider Internal Medicine; Visit Provider Student in an Organized Health Care Education/Training Program
DX: Z47.1 Aftercare following joint replacement surgery (principal); Z96.651 Presence of right artificial knee joint
CPT/HCPCS: 99024; 73560

== ENCOUNTER → 2025-02-11 10:10 | Outpatient (BNVA) | payer MEDICARE, MEDICAID, SELFPAY | PROVIDERS: PCP Internal Medicine; Referring Provider Internal Medicine; Visit Provider Physician Assistant | DX: Z47.1 Aftercare following joint replacement surgery (principal); Z96.651 Presence of right artificial knee joint | CPT/HCPCS: 99024 ==

== ENCOUNTER → 2025-02-14 13:25 | Outpatient (BNVA) | payer MEDICARE, MEDICAID, SELFPAY | PROVIDERS: PCP Internal Medicine; Referring Provider Internal Medicine; Visit Provider Student in an Organized Health Care Education/Training Program | DX: Z47.1 Aftercare following joint replacement surgery (principal); Z96.651 Presence of right artificial knee joint; T81.41XD Infection following a procedure, superficial incisional surgical site, subsequent encounter; M17.12 Unilateral primary osteoarthritis, left knee | CPT/HCPCS: 20610; J1010 ==

== ENCOUNTER → 2025-03-14 10:58 | Outpatient (BNVA) | payer MEDICARE, MEDICAID, SELFPAY | PROVIDERS: PCP Internal Medicine; Referring Provider Internal Medicine; Visit Provider Physician Assistant | DX: Z47.1 Aftercare following joint replacement surgery (principal); Z96.651 Presence of right artificial knee joint | CPT/HCPCS: 99024 ==